=== PATIENT | female | born 1980 | race American Indian/Alaskan Native ===

== ENCOUNTER 2020-11-28 23:47 | Emergency (ER) | payer OTHER ==
[~2020-11-28] VITALS: Ht 152.4 cm; Wt 101.2 kg
[~2020-11-28 23:47] MED LIST: ANTIBIOTIC; CRUTCH1 EACH; DAILY MULTIPLE1 EACH PO; IBUPROFEN400 MG PO; NORCO 5-325 TA1 EACH PO; PERCOCET 5-3251 EACH PO; VITAMIN D400 UNI1 PO
== END 2020-11-29 00:26 | disposition home or self-care (01) ==
LOC: ED 23:47
DX: H60.93 Unspecified otitis externa, bilateral (principal); Z87.891 Personal history of nicotine dependence
CPT/HCPCS: 99283

== ENCOUNTER 2020-12-23 11:52 | Emergency (ER) | payer OTHER ==
[~2020-12-23] VITALS: Ht 152.4 cm; Wt 111.1 kg
--- OUTSIDE RECORDS SUMMARY | 2020-12-23 12:34 | XMS ---
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 Angelo has no Care Guidelines for this patient. Misty [facility] (12 MO.) [facility] NOTE: Visits indicate total known visits. ED[facility] VISIT TRACKING (12 MO.) [facility] COMPLAINT: - EAR PAIN BOTH, SORE THROAT, FEVER 11/28/2020 23:[address] [facility] TYPE: Emergency COMPLAINT: - EAR PAIN DIAGNOSES: - Personal history of nicotine dependence - Unspecified otitis externa, bilateral - Otalgia, left ear INPATIENT VISIT TRACKING (12 MO.) No inpatient visits to display in this time frame [email or web address]
[2020-12-23] MEDS ORDERED: HYDROCODON-ACE1 EA11 PO (12:40)
== END 2020-12-23 13:01 | disposition home or self-care (01) ==
LOC: ED 11:52
DX: H60.93 Unspecified otitis externa, bilateral (principal); Z87.891 Personal history of nicotine dependence; Z88.8 Allergy status to other drugs, medicaments and biological substances
CPT/HCPCS: 99282; A9270

== ENCOUNTER 2021-06-06 05:47 | Emergency (ER) | payer OTHER ==
[~2021-06-06] VITALS: Ht 152.4 cm; Wt 110.0 kg
[~2021-06-06 05:47] MED LIST changes: +HYDROCODON-ACE1 EA11 PO
[2021-06-06] MEDS ORDERED: GABAPENTIN100 MG PO (06:26)
== END 2021-06-06 06:32 | disposition home or self-care (01) ==
LOC: ED 05:47
DX: M79.2 Neuralgia and neuritis, unspecified (principal); Z87.891 Personal history of nicotine dependence
CPT/HCPCS: 99283

== ENCOUNTER 2022-08-11 11:59 | Emergency (ER) | payer OTHER ==
[~2022-08-11] VITALS: Ht 152.4 cm; Wt 104.9 kg
[~2022-08-11 11:59] MED LIST changes: +GABAPENTIN100 MG PO
== END 2022-08-11 14:51 | disposition home or self-care (01) ==
LOC: ED 11:59
DX: L50.9 Urticaria, unspecified (principal); Z87.891 Personal history of nicotine dependence
CPT/HCPCS: 99282